=== PATIENT | male | born 1955 | race Caucasian/White ===

== ENCOUNTER → 2022-01-18 | Outpatient (REF) | payer MEDICARE, BC ==
[2022-01-23 19:23] LABS: MAU/CREAT RATIO 136.7 MCG/MG (0.0-30.0)
== END ==
LOC: M LAB REF 16:47
PROVIDERS: ATTEND Nurse Practitioner Family
DX: I12.9 Hypertensive chronic kidney disease with stage 1 through stage 4 chronic kidney disease, or unspecified chronic kidney disease (principal); N18.9 Chronic kidney disease, unspecified